=== PATIENT | male | born 1980 | race Two or more races ===

== ENCOUNTER 2021-04-15 18:23 | Emergency (ER) | payer MEDICARE, MEDICAID ==
[~2021-04-15] VITALS: Ht 170.2 cm; Wt 54.5 kg
[2021-04-15 18:31] VITALS: BP 137/82
[2021-04-15] MEDS ORDERED: BUPR-121 PO (18:32)
[2021-04-15] MEDS ORDERED: NALT50TA6 PO (18:32)
[2021-04-15] MEDS ORDERED: AMOX TR/POT CLAV 875 MG/125 MG TABLET PO ONE (19:00)
[2021-04-15] MEDS ORDERED: ACETAMINOPHEN 500 MG TABLET PO ONE (19:00)
[2021-04-15] MEDS ORDERED: IBUPROFEN 600 MG TABLET PO ONE (19:00)
== END 2021-04-15 19:26 | disposition home or self-care (01) ==
LOC: EMS 18:23
DX: K02.9 Dental caries, unspecified (principal); K08.89 Other specified disorders of teeth and supporting structures; F32.9 Major depressive disorder, single episode, unspecified; I10 Essential (primary) hypertension
CPT/HCPCS: 99284; Z7502; Z7610

== ENCOUNTER → 2021-10-26 15:37 | Emergency (ER) | payer MEDICARE, MEDICAID ==
[~2021-10-26 15:37] MED LIST: BUPR-121 PO; NALT50TA6 PO
== END | disposition left against medical advice (07) ==
LOC: EMS 15:37
DX: R50.9 Fever, unspecified (principal); Z53.21 Procedure and treatment not carried out due to patient leaving prior to being seen by health care provider

== ENCOUNTER 2022-02-07 09:45 | Emergency (ER) | payer MEDICARE, OTHER ==
[~2022-02-07] VITALS: Ht 172.7 cm; Wt 68.2 kg
[~2022-02-07 09:45] MED LIST changes: -BUPR-121 PO; +BUPR-345 PO
[2022-02-07 10:30] VITALS: BP 127/63
== END 2022-02-07 10:52 | disposition home or self-care (01) ==
LOC: EMS 09:45
DX: T16.2XXA Foreign body in left ear, initial encounter (principal); F32.9 Major depressive disorder, single episode, unspecified; F17.210 Nicotine dependence, cigarettes, uncomplicated; W45.8XXA Other foreign body or object entering through skin, initial encounter; Y93.89 Activity, other specified; Y92.89 Other specified places as the place of occurrence of the external cause; Y99.8 Other external cause status
CPT/HCPCS: 99284; Z7502

== ENCOUNTER 2023-06-20 12:12 | Emergency (ER) | payer MEDICARE, OTHER ==
[~2023-06-20] VITALS: Ht 172.7 cm; Wt 75.0 kg
[2023-06-20 12:21] VITALS: TEMP 98.5
[2023-06-20 12:37] LABS: COVID AG,FIA SOURCE NASAL SWAB
[2023-06-20 13:04] LABS: SARS-COV2 (COVID) ANTIGEN,FIA Negative (Negative)
[2023-06-20 13:05] LABS: INFLUENZA TYPE A NEGATIVE FOR TYPE A (NEGATIVE); INFLUENZA TYPE B NEGATIVE FOR TYPE B (NEGATIVE)
[2023-06-20 13:39] VITALS: BP 126/73; PULSE 92; RESP 18
== END 2023-06-20 14:28 | disposition home or self-care (01) ==
LOC: EMS 12:14
DX: J06.9 Acute upper respiratory infection, unspecified (principal); F32.A Depression, unspecified; F17.210 Nicotine dependence, cigarettes, uncomplicated; Z20.822 Contact with and (suspected) exposure to COVID-19
CPT/HCPCS: 71045; 87804; 99284

== ENCOUNTER 2024-03-18 20:51 | Emergency (ER) | payer MEDICARE, OTHER ==
[~2024-03-18] VITALS: Ht 165.1 cm; Wt 54.5 kg
[~2024-03-18 20:51] MED LIST changes: +NALT50TA33 PO; -NALT50TA6 PO
[2024-03-18 21:30] VITALS: TEMP 98.2
[2024-03-18 22:44] VITALS: BP 128/53; PULSE 58; RESP 23
[2024-03-18 23:42] LABS: BASOPHILS % (AUTO) 0.6 % (0.0-2.0); EOSINOPHILS % (AUTO) 4.3 % (1.0-6.0); HEMATOCRIT 44.3 % (41-53); HEMOGLOBIN 15.2 g/dL (13.5-17.5); LYMPHOCYTES # (AUTO) 3.8 K/uL (1.0-4.8); LYMPHOCYTES % (AUTO) 45.2 % (22.0-44.0); MEAN CORPUSCULAR HEMOGLOBIN 29.3 pg (26.0-34.0); MEAN CORPUSCULAR HGB CONC 34.3 G/dL (31.0-37.0); MEAN CORPUSCULAR VOLUME 86 fL (80-100); MONOCYTES # (AUTO) 0.6 K/uL (0.1-1.0); MONOCYTES % (AUTO) 7.5 % (2.0-9.0); NEUTROPHILS # (AUTO) 3.5 K/uL (1.8-7.7); NEUTROPHILS % (AUTO) 42.4 % (40.0-70.0); PLATELET COUNT (AUTO) 279 K/uL (150-450); RED BLOOD CELL COUNT(AUTO) 5.19 MIL/uL (4.50-5.90); RED CELL DISTRIBUTION WIDTH 14.2 % (11.5-14.5); WHITE BLOOD COUNT (AUTO) 8.3 K/uL (4.5-11.0)
[2024-03-18 23:52] LABS: ANION GAP 6 mmol/L (8-16); CALCIUM, TOTAL 9.4 mg/dL (8.8-10.5); CARBON DIOXIDE 31 mmol/L (22-29); CHLORIDE 102 mmol/L (98-107); CREATININE 0.89 mg/dL (0.60-1.30); GLOMERULAR FILTR. RATE CALC > 60 mL/min (>60); GLUCOSE,RANDOM 90 mg/dL (70-110); POTASSIUM 4.2 mmol/L (3.5-5.1); SODIUM SERUM 139 mmol/L (136-145); UREA NITROGEN, BLOOD 14 mg/dL (7-18)
[2024-03-19] LABS: TROPONIN I-HIGH SENSITIVITY 7 ng/L (<76)
[2024-03-19] MEDS ORDERED: IBUP-1492 PO (00:43)
== END 2024-03-19 01:13 | disposition home or self-care (01) ==
LOC: EMS 20:51
DX: R07.89 Other chest pain (principal); F32.A Depression, unspecified
CPT/HCPCS: 71045; 80048; 84484; 85025; 93005; 99285; 36415-L1; 36415-TC